=== PATIENT | female | born 2000 | race Caucasian/White ===

== ENCOUNTER 2025-08-23 15:12 | Emergency (ER) | payer OTHER, SELFPAY ==
--- NOTE | ~2025-08-23 | CT_ITS ---
CT abdomen pelvis w con INDICATION:Onset this AM, Mid abdominal pain, Nausea,Vomiting,Diarrhea. . COMPARISON: None. TECHNIQUE: Axial images of the abdomen and pelvis were obtained following infusion of 100 mL Isovue 300. Dose optimization technique was utilized. FINDINGS: The lung bases are clear. The liver parenchyma is unremarkable. Periportal edema is noted. Gallbladder is distended with pericholecystic fluid. No calcified gallstone. Follow-up ultrasound is recommended. The pancreas and spleen are normal in appearance. The adrenal glands are symmetric in size. The kidneys demonstrate symmetric uptake and excretion of contrast. No cystic mass is evident. There is no solid mass. There is no hydronephrosis. There is thickening of the gastric wall may represent gastritis. There are no bowel obstruction. The appendix is not visualized however no secondary signs of appendicitis are identified. The bladder and rectum are normal. Uterus is retroverted. No free intraperitoneal fluid or air is evident. There is no significant retroperitoneal lymphadenopathy. The aorta, visceral vessels and renal arteries demonstrate normal caliber and patency. The lower thoracic and lumbar vertebrae are in normal alignment. IMPRESSION: Gallbladder is distended with pericholecystic fluid. Follow-up ultrasound is recommended. Nonspecific periportal edema is noted. Thickening of the gastric wall may represent gastritis. All CT scans at this facility are performed using low dose modulation techniques as appropriate to perform exam including the following: automated exposure control; use of iterative reconstruction technique; adjustment of the mA and/or kV according to patient size (this includes techniques or standardized protocols for targeted exams where dose is matched to indication/reason for exam). Reviewed, dictated and finalized at location S. IMPRESSION: Gallbladder is distended with pericholecystic fluid. Follow-up ultrasound is re commended. Nonspecific periportal edema is noted. Thickening of the gastric wall may represent gastritis. All CT scans at this facility are performed using low dose modulation techniqu es as appropriate to perform exam including the following: automated exposure c ontrol; use of iterative reconstruction technique; adjustment of the mA and/or kV according to patient size (this includes techniques or standardized protocol s for targeted exams where dose is matched to indication/reason for exam).
[2025-08-23 15:12] VITALS: BP 96/85; PULSE 72; RESP 20; TEMP 36.5; O2SAT 100
--- NOTE | 2025-08-23 15:22 | ED_ITS ---
HPI - Nausea/Vomiting/Diarrhea General Chief complaint: Nausea/Vomiting/Diarrhea Stated complaint: nausea and vomiting Time Seen by Provider: 08/23/25 15:22 Source: patient and EMS Mode of arrival: EMS Limitations: no limitations History of Present Illness HPI Narrative: Sudden onset of nausea, vomiting and diarrhea within 1 hour prior to arrival to the emergency room by ambulance. Patient report 4 episodes of vomiting, 1 episode of liquid stool, associated with mid abdominal pain worse with any eating or drinking, no alleviating factors. History of anxiety/depression on Zoloft. Patient uses marijuana daily. Denies any history of marijuana inducing vomiting Related Data Home Medications ?Medication ?Instructions ?Recorded ?Confirmed ?Last Taken ?Type sertraline 100 mg tablet (Zoloft) 100 mg PO DAILY 08/01 02/22 Unknown History Allergies Allergy/AdvReac Type Severity Reaction Status Date / Time amoxicillin Allergy Mild Unknown Verified 08/23/25 15:19 Review of Systems 2 Review of Systems: All systems reviewed & are unremarkable except as noted in HPI and below Exam 2 Narrative: General appearance: Well-developed, well-nourished looks ill Skin: Pale skin Head: Normocephalic, nontraumatic Eyes: Clear conjunctiva ENT: Oropharynx normal, ears normal, nose normal Neck: Supple, nontender Chest and respiratory: Airway patent, no respiratory distress, no accessory muscle use Heart: Regular rate/rhythm Abdomen: Soft, mild tenderness right lower quadrant, no guarding or rebound , no organomegaly, quiet bowel sounds Vascular: Normal peripheral pulses, normal capillary refill. Musculoskeletal: Normal range of motion, nontender back Neurologic: Alert and oriented ?3, CEPHALOMETRIC TECHNICIAN is normal as tested, no gross motor deficit Course Vital Signs Vital signs: Vital Signs Temperature 36.5 C 08/23/25 15:12 Pulse Rate 72 08/23/25 15:12 Respiratory Rate 20 08/23/25 15:12 Blood Pressure 96/85 L 08/23/25 15:12 Pulse Oximetry 100 08/23/25 15:12 Oxygen Delivery Room Air 08/23/25 15:12 Temperature 36.5 C 08/23/25 15:12 Pulse Rate 74 08/23/25 16:30 Respiratory Rate 15 08/23/25 16:30 Blood Pressure 113/73 08/23/25 16:30 Pulse Oximetry 99 08/23/25 16:30 Oxygen Delivery Room Air 08/23/25 15:12 MDM - Nausea/Vomiting/Diarrhea MDM Narrative Medical decision making narrative: Patient came with acute onset of nausea, vomiting and diarrhea associated with abdominal cramps Vital signs are stable Physical examination showing ill looking patient, pale, mild right lower quadrant tenderness Differential diagnosis viral gastroenteritis, appendicitis, colitis, enteritis, urinary tract infection, Blood workup today includes CBC, CMP, lipase showed insignificant abnormalities Patient tested negative for COVID flu and RSV Urinalysis showed no evidence of infection CT scan of the abdomen and pelvis with IV contrast showed gallbladder is distended with pericholecystic fluid. Follow-up ultrasound is recommended. Nonspecific periportal edema is noted. Thickening of the gastric wall may represent gastritis Blood workup showed normal WBC, patient have no fever, liver enzymes are within normal limit, total bilirubin within normal limit, no need for urgent ultrasound of the gallbladder at this time. Ultrasound is not available at this time, and is not available over the next 48 hours because of the week end Patient could not keep crackers or fluid down. Admit to hospitalist, observation 24. Patient received Reglan and Benadryl IV, felt much better, and decided to leave against medical advice. I declare that I have personally explained to the patient the risks and consequences involved in leaving this facility at this time. the benefits of continued treatment and/or hospitalization. And the alternatives. If any. to continued treatment and/or hospitalization. if applicable.I have not identified any psychosis, drugs, mental illness, or medical illness that alters decision- making capacity (reasoning abilities ). Differential Diagnosis Differential diagnosis: Likely food poisoning, gastroenteritis, drug-induced nausea and vomiting and dehydration Medical Records Attestation: I reviewed the patient's medical records. Lab Data Attestation: I reviewed the patient's lab results. 08/23/25 15:31 08/23/25 15:31 Labs: Lab Results 08/23/25 08/23/25 Range/Units 15:31 16:26 WBC 8.1 (4.8-10.8) K/mm3 RBC 4.43 (4.20-5.40) M/mm3 Hgb 12.9 (12.0-15.0) g/dL Hct 39.8 (35.0-49.0) % MCV 89.8 (78.0-102.0) fL MCH 29.1 (27.0-31.0) pg MCHC 32.4 (32-36) g/dL RDW 12.4 (11.6-14.4) % Plt Count 193 (150-420) K/mm3 MPV 11.0 (9.2-11.8) fl Immature Gran % (Auto) 0.4 H (0.0-0.0) % Neut % (Auto) 46.9 L (50.0-70.0) % Lymph % (Auto) 39.5 (18.0-42.0) % [place] % (Auto) 5.4 (2.0-11.0) % Eos % (Auto) 7.3 H (1.0-6.0) % Baso % (Auto) 0.5 (0.0-1.0) % Lymph # (Auto) 3.21 (1.10-4.50) K/mm3 [place] # (Auto) 0.44 (0.10-0.90) K/mm3 Eos # (Auto) 0.59 H (0.02-0.50) K/mm3 Baso # (Auto) 0.04 (0.00-0.10) K/mm3 Abs Immat Gran (auto) 0.03 H (0.00-0.00) K/mm3 Absolute Neuts (auto) 3.82 (1.70-7.20) K/mm3 Absolute Nucleated RBC 0.00 (0.00-0.00) K/mm3 Nucleated RBC % 0.0 (0-0.0) % Sodium 140 (137-145) mmol/L Potassium 3.7 (3.4-5.0) mmol/L Chloride 106 (98-107) mmol/L Carbon Dioxide 24 (22-30) mmol/L Anion Gap 10 (4-12) mmol/L BUN 13 (7-17) mg/dL Creatinine 0.63 L (0.7-1.0) mg/dL Estim Creat Clear Calc 103 ml/min Estimated GFR > 60 (59 - ) Glucose 123 H (65-110) mg/dL Calculated Osmolality 291 (285-295) mOsm/kg Calcium 9.0 (8.4-10.2) mg/dL Total Bilirubin 1.5 H (0.2-1.3) mg/dL AST 20 (14-36) U/L ALT 15 (6-35) U/L Alkaline Phosphatase 49 (38-126) U/L Total Protein 7.2 (6.3-8.2) g/dL Albumin 4.4 (3.5-5.1) g/dL Lipase 65 (23-300) U/L Urine Color Light yellow (Yellow) Urine Appearance Clear (Clear) Urine pH 8.0 (5.0-8.0) Ur Specific [place] 1.010 (1.010-1.020) Urine Protein Negative (Negative) Urine Glucose (UA) Negative (Negative) Urine Ketones Negative (Negative) Ur Blood (Man) Negative (Negative) Urine Nitrate Negative (Negative) Urine Bilirubin Negative (Negative) Urine Urobilinogen 0.2 (0.2-1.0) mg/dL Leukocyte Esterase Rfl Negative (Negative) ROSAL[place]/UL Influenza A (RT-PCR) Negative (Negative) Influenza B (RT-PCR) Negative (Negative) RSV (RT-PCR) Negative (Negative) SARS-CoV-2 RNA (RT-PCR) Negative (Negative) Imaging Data Radiologist's impression: Impressions Abdomen/Pelvis CT 08/23/25 16:32 IMPRESSION: Gallbladder is distended with pericholecystic fluid. Follow-up ultrasound is recommended. Nonspecific periportal edema is noted. Thickening of the gastric wall may represent gastritis. All CT scans at this facility are performed using low dose modulation techniques as appropriate to perform exam including the following: automated exposure control; use of iterative reconstruction technique; adjustment of the mA and/or kV according to patient size (this includes techniques or standardized protocols for targeted exams where dose is matched to indication/reason for exam). Critical Care Time Critical Care Time Critical Care Time: Yes Total Critical Care Time: 30 Discharge Plan Discharge Clinical Impression: Gastroenteritis Patient Disposition: Left Against Medical Advice Condition: Guarded Prognosis
[2025-08-23 15:25] VITALS: O2SAT 100
[2025-08-23] MEDS: ONDANSETRON INJ 4 MG/2 ML VIAL IV PUSH (15:27)
[2025-08-23 15:31] VITALS: BP 98/59; PULSE 78
[2025-08-23 15:35] LABS: Hematocrit 39.8 % (35.0-49.0); Hemoglobin 12.9 g/dL (12.0-15.0); Immature Granulocyte Percent A 0.4 % (0.0-0.0); Lymphocytes Absolute Auto 3.21 K/mm3 (1.10-4.50); Mean Corpuscular HGB Conc 32.4 g/dL (32-36); Mean Corpuscular Hemoglobin 29.1 pg (27.0-31.0); Mean Corpuscular Volume 89.8 fL (78.0-102.0); Nucleated Red Blood Cells Absolute Auto 0.00 K/mm3 (0.00-0.00); Nucleated Red Blood Cells Perc 0.0 % (0-0.0); Platelet Count Result 193 K/mm3 (150-420); Red Blood Count 4.43 M/mm3 (4.20-5.40); White Blood Count 8.1 K/mm3 (4.8-10.8)
[2025-08-23 15:47] VITALS: BP 114/60; PULSE 82; O2SAT 100
[2025-08-23 15:47] LABS: Alanine Aminotransferase 15 U/L (6-35); Albumin Level 4.4 g/dL (3.5-5.1); Alkaline Phosphatase 49 U/L (38-126); Anion Gap 10 mmol/L (4-12); Aspartate Amino Transferase 20 U/L (14-36); Bilirubin,Total 1.5 mg/dL (0.2-1.3); Blood Urea Nitrogen 13 mg/dL (7-17); Calcium 9.0 mg/dL (8.4-10.2); Carbon Dioxide 24 mmol/L (22-30); Chloride 106 mmol/L (98-107); Estimated CRCL calculation 103 ml/min; Estimated Glomerular Filt Rate > 60; Glucose 123 mg/dL (65-110); Lipase 65 U/L (23-300); Osmolality Calculated 291 mOsm/kg (285-295); Potassium 3.7 mmol/L (3.4-5.0); Sodium 140 mmol/L (137-145); Total Protein 7.2 g/dL (6.3-8.2)
[2025-08-23 16:12] LABS: Influenza A QL RT-PCR Negative (Negative); Influenza B QL RT-PCR Negative (Negative); RSV RNA, RT-PCR Negative (Negative); SARS-CoV-2 RNA PCR Negative (Negative)
[2025-08-23 16:16] VITALS: BP 127/69; PULSE 80; RESP 16; O2SAT 100
[2025-08-23 16:30] VITALS: BP 113/73; PULSE 74; RESP 15; O2SAT 99
[2025-08-23 16:36] LABS: Add Urine Microscopic? NO; Appearance Urine Clear (Clear); Glucose Urine UA Negative (Negative); Leukocyte Esterase Ur Negative LEU/UL (Negative); Nitrate Urine Negative (Negative); Specific Grav Ur 1.010 (1.010-1.020)
[2025-08-23] MEDS: METOCLOPRAMIDE HCL INJ 10 MG/2 ML VIAL IV PUSH (17:12)
[2025-08-23] MEDS: SODIUM CHLORIDE 0.9% IV 1,000 ML 999 ML IV CONT (17:20)
--- NOTE | 2025-08-23 17:27 | PC.NURSE ---
Pt called out. Requesting to go home instead of being admitted. She states I feel fine now. ERP and RN notified.
== END 2025-08-23 18:03 | disposition left against medical advice (07) ==
LOC: CHSED 17:05 → CHS2ND 17:42
PROVIDERS: Emergency Provider Emergency Medicine; PCP Family Medicine
DX: K52.9 Noninfective gastroenteritis and colitis, unspecified (principal); Z79.899 Other long term (current) drug therapy; Z20.822 Contact with and (suspected) exposure to COVID-19
CPT/HCPCS: 36415; 74177; 80053; 81003; 83690; 85025; 87637; 96374; 96375; 99285; G0378; J1200; J2405; J2765; J7030; Q9967